=== PATIENT | male | born 1995 | race Caucasian/White ===

== ENCOUNTER 2024-11-18 06:10 | Day surgery (SDC) | payer OTHER ==
[2024-11-12 13:21] VITALS: BMI 28.1
[2024-11-18] MEDS ORDERED: ceFAZolin SODIUM 1 GM VIAL ONE (06:59)
[2024-11-18] MEDS ORDERED: DEXAMETHASONE SOD PHOSPHATE 4 MG/1 ML VIAL ONE ×2 (07:00)
[2024-11-18] MEDS ORDERED: ONDANSETRON 4 MG/2 ML VIAL ONE (07:00)
[2024-11-18] MEDS ORDERED: METOCLOPRAMIDE HCL INJECTION 10 MG/2 ML VIAL ONE (07:00)
[2024-11-18] MEDS ORDERED: GLYCOPYRROLATE 0.2 MG/1 ML VIAL ONE (07:00)
[2024-11-18] MEDS ORDERED: PROPOFOL 20 ML ONE ×2 (07:01→08:10)
[2024-11-18] MEDS ORDERED: MIDAZOLAM HCL 2 MG/2 ML SINGLE DOSE VIAL ONE (07:01)
[2024-11-18] MEDS ORDERED: ACETAMINOPHEN INJECTION 100 ML ONE (07:05)
[2024-11-18] MEDS ORDERED: ROPIVACAINE HCL/PF 100 MG/20 ML VIAL ONE (07:05)
[2024-11-18] MEDS ORDERED: TRANEXAMIC ACID 1000 MG/10 ML VIAL ONE (08:15)
[2024-11-18] MEDS ORDERED: LACTATED RINGERS SOLUTION 1,000 ML IV SCH (08:45)
[2024-11-18] MEDS ORDERED: KETOROLAC TROMETHAMINE 30 MG/1 ML VIAL ONE (11:23)
[2024-11-18] MEDS ORDERED: FENTANYL CITRATE/PF 50 MCG/ML VIAL ONE ×2 (11:50→12:07)
[2024-11-18] MEDS ORDERED: oxyCODONE HCL 5 MG TABLET PO PRN (11:54)
[2024-11-18] MEDS ORDERED: oxyCODONE HCL 5 MG TABLET ONE (12:48)
[2024-11-18] MEDS: oxyCODONE HCL 5 MG TABLET PO PRN (12:50)
[2024-11-18 13:06] VITALS: RESP 18
[2024-11-18 13:49] VITALS: BP 112/66; PULSE 86; TEMP 97.1
== END 2024-11-18 13:40 | disposition home or self-care (01) ==
LOC: FASU 06:10
PROVIDERS: ATTEND Orthopaedic Surgery Sports Medicine
PROC: 0LM14ZZ Reattachment of Right Shoulder Tendon, Percutaneous Endoscopic Approach (ICD-10-PCS; principal; 2024-11-18 08:47)
DX: S43.431A Superior glenoid labrum lesion of right shoulder, initial encounter (principal); M25.311 Other instability, right shoulder; S42.291A Other displaced fracture of upper end of right humerus, initial encounter for closed fracture; X58.XXXA Exposure to other specified factors, initial encounter; Y93.9 Activity, unspecified; Y92.9 Unspecified place or not applicable
CPT/HCPCS: 29806; C1713; 94760; J0131